=== PATIENT | female | born 2000 | race Caucasian/White ===

== ENCOUNTER 2018-01-20 07:25 | Inpatient (IN) | payer MEDICAID ==
[~2018-01-20] VITALS: Ht 162.6 cm; Wt 60.8 kg
[~2018-01-20 07:25] MED LIST: ALBU8HFA IH
[2018-01-20] MEDS ORDERED: RINGERS SOLUTION,LACTATED 1,000 ML IV PRN (09:37)
[2018-01-20] MEDS ORDERED: RINGERS SOLUTION,LACTATED 1,000 ML IV SCH (09:37)
[2018-01-20] MEDS ORDERED: OXYTOCIN 30 UNITS/LACT RINGERS 500 ML IV ONE (09:37)
[2018-01-20] MEDS ORDERED: RINGERS SOLUTION,LACTATED 1,000 ML IV ONE ×3 (09:38→11:22)
[2018-01-20] MEDS ORDERED: PREN1TAB80 PO (09:40)
[2018-01-20] MEDS ORDERED: CITRIC ACID/SODIUM CITRATE 30 ML SOLUTION UDCUP PO PRN (09:45)
[2018-01-20] MEDS ORDERED: FentaNYL CITRATE-PF 100 MCG/2 ML VIAL IVP PRN (09:45)
[2018-01-20] MEDS ORDERED: METOCLOPRAMIDE HCL 5 MG/ML 2 ML VIAL IVP PRN (09:45)
[2018-01-20] MEDS ORDERED: LIDOCAINE/PF 1% 30 ML VIAL INJ PRN (09:45)
[2018-01-20 10:18] LABS: BASOPHILS % (AUTO) 0.3 % (0.0-2.0); EOSINOPHILS % (AUTO) 0.3 % (1.0-6.0); HEMATOCRIT 35.3 % (36-46); HEMOGLOBIN 12.2 g/dL (12.0-16.0); LYMPHOCYTES # (AUTO) 1.6 K/uL (1.0-4.8); LYMPHOCYTES % (AUTO) 13.8 % (22.0-44.0); MEAN CORPUSCULAR HEMOGLOBIN 31.7 pg (26.0-34.0); MEAN CORPUSCULAR HGB CONC 34.5 G/dL (31.0-37.0); MEAN CORPUSCULAR VOLUME 92 fL (80-100); MONOCYTES # (AUTO) 0.6 K/uL (0.1-1.0); MONOCYTES % (AUTO) 5.3 % (2.0-9.0); NEUTROPHILS # (AUTO) 9.4 K/uL (1.8-7.7); NEUTROPHILS % (AUTO) 80.3 % (40.0-70.0); PLATELET COUNT (AUTO)-OB 259 K/uL (150-450); RED BLOOD CELL COUNT(AUTO) 3.84 MIL/uL (4.00-5.20)
[2018-01-20 11:20] VITALS: BP 113/67
[2018-01-20] MEDS ORDERED: GLYCERIN/WITCH HAZEL LEAF 40 PADS JAR TP PRN ×2 (11:30)
[2018-01-20] MEDS ORDERED: MEASLES/MUMPS/RUBELLA VACCINE, LIVE 0.5 ML/VIAL SQ ONE ×2 (11:30)
[2018-01-20] MEDS ORDERED: LANOLIN 7 GM OINTMENT TP PRN ×2 (11:30)
[2018-01-20] MEDS ORDERED: IBUPROFEN 600 MG TABLET PO PRN (11:30)
[2018-01-20] MEDS ORDERED: BENZOCAINE 20%/MENTHOL 56 GM SPRAY CANISTER TP PRN ×2 (11:30)
[2018-01-20] MEDS ORDERED: OxyCODONE HCL/ACETAMINOPHEN 5-325 MG TABLET PO PRN ×4 (11:30)
[2018-01-20] MEDS: IBUPROFEN 600 MG TABLET PO PRN (11:35)
[2018-01-20 12:34] LABS: APPEARANCE,URINE CLOUDY (CLEAR); BILIRUBIN,URINE NEGATIVE (NEGATIVE); GLUCOSE, URINE (UA) NEGATIVE (NEGATIVE); KETONES,URINE NEGATIVE (NEGATIVE); LEUKOCYTE ESTERASE ,URINE MODERATE (NEGATIVE); NITRATE,URINE NEGATIVE (NEGATIVE); OCCULT BLOOD,URINE SMALL (NEGATIVE); PH,URINE 7.5 (5.0-8.0); PROTEIN,URINE NEGATIVE (NEGATIVE); UROBILINOGEN,URINE 0.2 mg/dL (<=1.0)
[2018-01-20 12:42] LABS: BACTERIA,URINE Moderate /HPF (None Seen); SQUAMOUS EPITHELIAL CELL,UR Moderate /LPF (None Seen)
[2018-01-20 12:43] LABS: CALCIUM OXALATE CRYSTALS,UR Moderate /LPF (None Seen)
[2018-01-20 18:11] LABS: RUBELLA SCREEN (IGG) IMMUNE (IMMUNE)
[2018-01-20] MEDS ORDERED: OXYGEN THERAPY IH SCH (20:00)
[2018-01-20] MEDS: MAGNESIUM HYDROXIDE SUSPENSION 30 ML UDCUP PO SCH (20:33)
[2018-01-20] MEDS ORDERED: MAGNESIUM HYDROXIDE SUSPENSION 30 ML UDCUP PO SCH (21:00)
[2018-01-21] MEDS: IBUPROFEN 600 MG TABLET PO PRN (01:22)
[2018-01-21 06:53] LABS: BASOPHILS % (AUTO) 0.4 % (0.0-2.0); EOSINOPHILS % (AUTO) 0.5 % (1.0-6.0); HEMATOCRIT 37.8 % (36-46); HEMOGLOBIN 13.1 g/dL (12.0-16.0); LYMPHOCYTES # (AUTO) 1.6 K/uL (1.0-4.8); LYMPHOCYTES % (AUTO) 13.3 % (22.0-44.0); MEAN CORPUSCULAR HEMOGLOBIN 32.2 pg (26.0-34.0); MEAN CORPUSCULAR HGB CONC 34.6 G/dL (31.0-37.0); MEAN CORPUSCULAR VOLUME 93 fL (80-100); MONOCYTES # (AUTO) 0.8 K/uL (0.1-1.0); MONOCYTES % (AUTO) 6.6 % (2.0-9.0); NEUTROPHILS # (AUTO) 9.4 K/uL (1.8-7.7); NEUTROPHILS % (AUTO) 79.2 % (40.0-70.0); PLATELET COUNT (AUTO)-OB 252 K/uL (150-450); RED BLOOD CELL COUNT(AUTO) 4.06 MIL/uL (4.00-5.20); RED CELL DISTRIBUTION WIDTH 13.2 % (11.5-14.5)
[2018-01-21] MEDS: MAGNESIUM HYDROXIDE SUSPENSION 30 ML UDCUP PO SCH (09:04)
[2018-01-21] MEDS ORDERED: IBUP-2071 PO (14:49)
[2018-01-21] MEDS ORDERED: DSS100 PO (14:50)
== END 2018-01-21 17:00 | disposition home or self-care (01) | DRG 560 ==
LOC: OBSVTOIN 07:25 → 4S 07:25
PROVIDERS: ADMIT Obstetrics & Gynecology; ATTEND Obstetrics & Gynecology
PROC: 10E0XZZ Delivery of Products of Conception, External Approach (ICD-10-PCS; principal; 2018-01-20)
PROC: 0HQ9XZZ Repair Perineum Skin, External Approach (ICD-10-PCS; 2018-01-20)
PROC: 3E02340 Introduction of Influenza Vaccine into Muscle, Percutaneous Approach (ICD-10-PCS; 2018-01-20)
DX: O70.0 First degree perineal laceration during delivery (principal); Z23 Encounter for immunization; Z37.0 Single live birth; Z3A.40 40 weeks gestation of pregnancy
CPT/HCPCS: 80307; 86592; 86762; 86850; 86900; 86901; 87086; 87340; 90686; J2590; J3490; J7120